=== PATIENT | female | born 1950 | race Caucasian/White ===

== ENCOUNTER 2023-08-03 17:03 | Outpatient (CLI) | payer MEDICARE, SELFPAY ==
--- OUTSIDE RECORDS SUMMARY | 2023-08-05 20:10 | XMS_ITS | Continuity of Care Document ---
Author Name Unknown Organization [facility] Address [address] [address] [place] [address] Phone Care Team Providers Care Food And Beverage Coordinator Name Role Phone Brittany Nair Unavailable Unavailabl e Allergies, Adverse Reactions, Alerts Substance Reaction Status Criticality No Known Allergies Active No Inform ation Medications Medication Instructions Dosage Effective Dates (start - stop) Status Comments Golytely 236 gram-22.74 gram-6.74 gram-5.86 gram oral solution golytely prep prior to colonoscopy - Active Plenvu 140 gram-9 gram-5.2 gram powder packs take by oral route as directed per package instructions 0.00 - Active ondansetron 4 mg disintegrating tablet take 1 - 2 tablet by oral route every [address] on top of the tongue where they will dissolve, then swallow 4 MG - Active Suprep Bowel Prep Kit 17.5 gram-3.13 gram-1.6 gram oral solution take as directed for colonoscopy prep - Active Procedures Procedure Date Colonoscopy Flex; W/remov Les- 22 Ugi Endo; W/bx 1/mx Level Iv-surg Path Gross/micro 22 Immunocytochemistry, Each Antibody Offic/outpt E&m Estab Mod-hi 2 Offic/outpt E&m Estab Mod-hi 2 22 Routine Serum Collection Colonoscopy Flex; W/remov Les- 19 Level Iv-surg Path Gross/micro 19 Colonoscopy Flex; Dx (sep Pro) 12 Advance Directives Directive Yes / No Effective Date File Name No Information Encounters Encounter Description Practice Location Reason(s) For Visit Diagnoses Date Provider Providers Copied on Encounter [facility], [address] [address], [place], [id number], tel:[phone] [facility] No Information 2 Max Soto. [address] [facility], [address], [id number], [place]. tel:[phone] [facility], [address] [address], [place], [id number], [place] tel:[phone] [facility] GI Symptoms or Concerns (chief complaint) Upper abdominal painColorectal polypsDivertic ulosis of colon without diverticulitis Encounter for screening for malignant neoplasm of colonPersonal history of colonic polypsBenign neoplasm of ascending colonGastritis , unspecified, without bleedingBenign neoplasm of ascending colon 2 Nory De Los Santos. [address], [id number], [place]. tel:[phone] Referring Provider: Referral Self, USE FOR SELF REFERRALS. Offic/outpt E&m Estab Mod-hi 2 [facility], [address] [address], [place], [id number], [place] tel:[phone] [facility] GI Symptoms or Concerns (chief complaint) Colorectal polypsGenerali zed abdominal pain 2 Nory De Los Santos. [address] [facility], [address], [id number], [place]. tel:[phone] Referring Provider: Referral Self, USE FOR SELF REFERRALS. [facility] [address] [address], [place], [id number], [place] tel:[phone] [facility] No Information 2 Eliazar Harris. [address] [facility], [address], [id number], [place]. tel:[phone] [facility], [address] [address], [place], [id number], [place] tel:[phone] [facility] No Information 2 [facility] Brittany. [address] [facility], [address], [place], [place], [id number], [place]. tel:[phone] [facility], [address] [address], [place], [id number], [place] tel:[phone] [facility] No Information 2 [facility] Brittany. [address] [facility], [address], [place], [place], [id number], [place]. tel:[phone] [facility], [address] [address], [place], [id number], [place] tel:[phone] [facility] Liver lesion 2 Kiki Gould. [address] [facility], [facility] [address], [place], [place], [id number], [place]. tel:[phone] [facility], [address] [address], [place], [id number], [place] tel:[phone] No Information 2 No Information Offic/outpt E&m Estab Mod-hi 2 [facility], [address] [address], [place], [id number], [place] tel:[phone] [facility] Colorectal polypsRUQ abdominal painNausea 2 [facility] Brittany. [address] [facility], [address], [place], [place], [id number], [place]. tel:[phone] Referring Provider: Referral Self, USE FOR SELF REFERRALS. [facility], [address] [address], [place], [id number], [place] tel:[phone] [facility] No Information 2 Kiki Gould. [address] [facility], [facility] [address], [place], [place], [id number], [place]. tel:[phone] [facility], [address] [address], [place], [id number], tel:[phone] [facility] Colorectal polypsDivertic ulosis of colon without diverticulitis Family history of colon cancerEncounte r for screening for malignant neoplasm of colonBenign neoplasm of ascending colonBenign neoplasm of transverse colonBenign neoplasm of transverse colonBenign neoplasm of ascending colonFamily history of malignant neoplasm of digestive organs 9 Ale George. [address], [id number], . tel:[phone] Referring Provider: Referral Self, USE FOR SELF REFERRALS. [facility], [address] [address], [place], [id number], tel:[phone] [facility] Diverticulosis Of ColonFamily Hx/Colonic PolypsColon Cancer ScreeningFamil y Hx GI Tract CancerColon Cancer ScreeningDiver ticulosis Of ColonFamily Hx GI Tract Cancer 2 Ale George. [address] [facility] [address], [place], [id number], . tel:[phone] Referring Provider: Luna Luu MD , [address] [facility] [address], [place], [address]. tel:[phone] Family History Family Member Type Diagnosis Age At Onset Sister Problem (finding) malignant neoplasm of c ervix uteri Father Problem (finding) Alcoholism Brother Problem (finding) Cancer, prostate Brother Problem (finding) Colon polyps Mother Problem (finding) cancer of colon Immunizations Vaccine Date Status Comments influenza, seasonal vaccine, quadrivalent, adjuvanted, .5mL dose, preservative free administered Note: [facility] bi-di rectional interface ; Source: Other Registry influenza, seasonal vaccine, quadrivalent, adjuvanted, .5mL dose, preservative free administered Note: [facility] bi-di rectional interface ; Source: Other Registry SARS-COV-2 (COVID-19) vaccin e, mRNA, spike protein, LNP, preservative free, 30 mcg/0.3mL dose administered Note: [facility] bi-direct ional interface ; Source: Other Registry SARS-COV-2 (COVID-19) vaccin e, mRNA, spike protein, LNP, preservative free, 30 mcg/0.3mL dose administered Note: [facility] bi-direct ional interface ; Source: Other Registry influenza, seasonal vaccine, quadrivalent, adjuvanted, .5mL dose, preservative free administered Note: [facility] bi-di rectional interface ; Source: Other Registry zoster vaccine recombinant administered N ote: [facility] bi-directional interface ; Source: Other Registry zoster vaccine recombinant administered N ote: [facility] bi-directional interface ; Source: Other Registry tetanus toxoid, reduced diphtheria toxoid, and acellular pertussis vaccine, adsorbed administered Note: [facility] b i-directional interface ; Source: Other Registry tetanus toxoid, reduced diphtheria toxoid, and acellular pertussis vaccine, adsorbed administered Note: [facility] b i-directional interface ; Source: Other Registry influenza, high dose seasona l, preservative-free administered Note: [facility] bi-direct ional interface ; Source: Other Registry influenza, high dose seasona l, preservative-free administered Note: [facility] bi-direct ional interface ; Source: Other Registry Prevnar 13 administered Note: [facility] bi-d irectional interface ; Source: Other Registry influenza, high dose seasona l, preservative-free administered Note: [facility] bi-direct ional interface ; Source: Other Registry Pneumovax 23 administered Note: [facility] bi-d irectional interface ; Source: Other Registry zoster vaccine, live administered Note: [facility] bi-directional interface ; Source: Other Registry Payers Payer name Insurance type Covered constitution party ID Authoriza tion(s) [employer] Medicare Advantage [id number] Social History Type Description Quantity Date Captured Comments Sex Female Smoking Status No Information Chief Complaint And Reason For Visit No Information Reason For Referral Reason For Referral No Information Plan Of Treatment Date Type Action Status Referral Ordered: Colonoscopy Appointment date/timeframe: 07/15/2022 ordered Referral Ordered: EGD Appointment date/timeframe: 07/15/2022 ordered Referral Ordered: MRI Abdomen WITH Contrast Appointment date/timeframe: 01/25/2022 ordered Referral Ordered: HIDA Scan WITH Ejection Fraction Appointment date/timeframe: 12/16/2021 ordered Referral Ordered: Ultrasound Gallbladder Appointment date/timeframe: 12/16/2021 ordered History Of Present Illness Encounter Date Complaint History Of Prese nt Illness GI Symptoms or Concerns GI Symptoms or Concerns Ms. Mike tamayo comes to clinic today to discuss a couple of different issues. One is her intolerance of the colonoscopy prep. She had a terrible time with MiraLax and Gatorade 3 years ago. At that time she was severely dehydrated and the examination almost could not be completed because of her clinical condition. She just recently tried Suprep. She wound up in the emergency room with uncontrolled vomiting after only 2 glasses of the prep. Of note, she did not take the ondansetron beforehand. Her mother of colon cancer at 63. She has made precancerous polyps and her brother makes lots of polyps. Another issue is right lower abdominal discomfort. This was a bigger problem in September and October. Nothing really made it better or worse. With time, this has become less of an issue. She has had an MRI, CT, ultrasound and HIDA scan in the interim. The most recent issue is that she has a generalized gnawing discomfort. This seems to be worse later in the day or evening. Again, nothing makes it better or worse. It can radiate into her chest. She has never tried antacids. She is somewhat concerned that she could have a more serious medical problem that has not yet been discovered. GI Symptoms or Concerns Misa correa is a 71-year-old female with GI history of colon polyps who presents to establish care for right-sided abdominal pain.The patient reports that for the last 7 to 8 weeks she has been struggling with a right upper quadrant and right lower quadrant abdominal pain. She describes a fairly constant pain. Sometimes it can radiate throughout her abdomen. She thinks that there can be pain in her low back as well. She states it is constant and it is worse at night when she is laying down to sleep. For the most part, she can eat and there is not any triggering of her pain. Sometimes, eating can make it better with pain. Another occasion she is very afraid to eat and has been limiting her intake. She is nauseated at times. She denies any vomiting. There is no unintentional weight loss. She estimates having 1 to 2 bowel movements per day. These have changed in caliber, but there was pain. She does note that she has to strain as well. If she passes a bowel movement, she wi Functional Status Date Functional Assessmen t No Information Instructions Date Instruction Additional Infor mation High Fiber Diet Related to Color ectal polyps Colon Polyps Related to Color ectal polyps Colon Cancer Prevention Related to Colorectal polyps Diverticulosis/Diverticulitis Re lated to Colorectal polyps Constipation bowel cleanse Relat ed to RUQ abdominal pain Diverticulosis/Diverticulitis Re lated to Colorectal polyps Colon Polyps Related to Color ectal polyps Colon Cancer Prevention Related to Colorectal polyps High Fiber Diet Related to Color ectal polyps Assessments Type Assessment Date No Information Patient Care Teams Name Effective Dates (start - stop) Status Members No Information
== END 2023-08-03 17:04 | disposition home or self-care (01) ==
LOC: NFLDREF 08-05 20:09
PROVIDERS: Visit Provider Nurse Practitioner Family
DX: N34.3 Urethral syndrome, unspecified (principal)
CPT/HCPCS: 87086